=== PATIENT | male | born 1965 | race African-American/Black ===

== ENCOUNTER 2016-12-11 21:13 | Emergency (ER) | payer SELFPAY ==
[~2016-12-11] VITALS: Ht 172.7 cm; Wt 78.0 kg
[2016-12-11 21:15] VITALS: BP 132/84; PULSE 76; RESP 16; TEMP 98.2; O2SAT 99
[2016-12-11] MEDS ORDERED: ALBU6.7H INH ×2 (21:57→23:53)
[2016-12-11] MEDS ORDERED: MONT10TA2 PO (21:58)
--- NOTE | 2016-12-11 22:08 | PD ---
HPI Chief Complaint: Complaint Time Seen by Provider: 22:00 Travel History International Travel<30 days: No Contact w/Intl Traveler<30days: No Traveled to known affect area: No History of Present Illness HPI 51-year-old male presents for evaluation of testicle pain. Symptom onset this morning. It is an aching pain that is constant and worse with palpation. Denies nausea or vomiting, abdominal pain, flank pain, fevers or chills, dysuria , urethral discharge. He is only sexually active with his , no new sexual partners. He had similar pain once last year, he was prescribed ciprofloxacin and the pain resolved. He has no other complaints at this time. [facility] Past Medical History Asthma: Yes Tetanus Vaccination: Never Vaccinated Influenza Vaccination: No Social History Alcohol Use: No Tobacco Use: No Substance Use: No Allergies-Medications (Allergen,Severity, Reaction): Coded Allergies: No Known Allergies (Unverified , 12/11/16) Reported Meds & Prescriptions Reported Meds & Active Scripts Active Proventil Hfa 6.7 GM Inh (Albuterol Sulfate) 90 Mcg/Act Aer 2 Puff INH Q4-6H PRN Reported Singulair (Montelukast Sodium) 10 Mg Tab 10 Mg PO HS Proventil Hfa 6.7 GM Inh (Albuterol Sulfate) 90 Mcg/Act Aer 2 Puff INH Q4-6H PRN Review of Systems Except as stated in HPI: all other systems reviewed are Neg Physical Exam Narrative GENERAL: Well-developed well-nourished male in no acute distress SKIN: Warm and dry. HEAD: Atraumatic. Normocephalic. EYES: Pupils equal and round. No scleral icterus. No injection or drainage. ENT: No nasal bleeding or discharge. Mucous membranes pink and moist. NECK: Trachea midline. No JVD. CARDIOVASCULAR: Regular rate and rhythm. No murmur appreciated. RESPIRATORY: No accessory muscle use. Clear to auscultation. Breath sounds equal bilaterally. GASTROINTESTINAL: Abdomen soft, non-tender, nondistended. Hepatic and splenic margins not palpable. : Tender to palpation right testicle, no inguinal hernia palpable. No scrotal edema or erythema. No urethral discharge. MUSCULOSKELETAL: No obvious deformities. No edema. NEUROLOGICAL: Awake and alert. No obvious cranial nerve deficits. Motor grossly within normal limits. Normal speech. Data Data Last Documented VS Vital Signs Date Time Temp Pulse Resp B/P Pulse Ox O2 Delivery O2 Flow Rate FiO2 12/11/16 21:15 98.2 76 16 132/84 99 Room Air Orders Urinalysis - C+S If Indicated (12/11/16 22:07) Gc And Chlamydia Pcr (12/11/16 22:07) Us Testicles W Doppler (12/11/16 22:07) Acetamin-Hydrocod 325-5 Mg ([place] 5-325 (12/11/16 22:30) Ondansetron Odt (Zofran Odt) (12/11/16 22:30) Ketorolac Inj (Toradol Inj) (12/11/16 23:00) Labs Laboratory Tests Test 12/11/16 22:15 Urine Color YELLOW Urine Turbidity CLEAR Urine pH 6.0 Urine Specific [place] 1.029 Urine Protein TRACE mg/dL Urine Glucose (UA) NEG mg/dL Urine Ketones NEG mg/dL Urine Occult Blood NEG Urine Nitrite NEG Urine Bilirubin NEG Urine Urobilinogen 2.0 MG/DL Urine Leukocyte Esterase NEG Urine RBC 1 /hpf Urine WBC LESS THAN 1 /hpf Urine Squamous Epithelial <1 /hpf Cells Urine Mucus FEW /lpf Microscopic Urinalysis Comment CULT NOT INDICATED MDM Medical Decision Making Medical Screen Exam Complete: Yes Emergency Medical Condition: Yes Medical Record Reviewed: Yes Differential Diagnosis Testicular torsion, epididymitis, orchitis, hydrocele, cystocele Narrative Course 51-year-old male with one-day history of testicle pain. Examination reveals tenderness to palpation of the testicle, otherwise unremarkable. Ultrasound of the testicles reveals a hydrocele, otherwise unremarkable. Urinalysis is unremarkable. Plan is to have the patient follow up with urology as needed. For discharge. Recommend [id number] NSAIDs for symptom relief. On reexamination he reports that the pain is essentially resolved. He is requesting a prescription for Proventil refill. Stable for discharge. Diagnosis Primary Impression: Hydrocele Qualified Code: N43.3 - Hydrocele, unspecified hydrocele type Additional Instructions: Follow-up with urology as needed. Take [id number] Tylenol or Motrin for discomfort. Return for any emergent medical conditions. Med/Other Pt SpecificInfo: Prescription(s) given Scripts Albuterol 6.7 GM Inh (Proventil Hfa 6.7 GM Inh)90 Mcg/Act Aer2 Puff INH Q4-6H PRN (SHORTNESS OF BREATH) #1 INHALER Ref 0 Prov:Jensen Matute MD 12/11/16 Disposition: 01 DISCHARGE HOME Condition: Stable Dashawn Luis December 11, 2016 22:08
[2016-12-11] MEDS ORDERED: ONDANSETRON ODT 4 MG TAB PO ONE (22:30)
[2016-12-11] MEDS ORDERED: ACETAMINOPHEN/HYDROcodone 325 MG/5 MG TAB PO ONE (22:30)
[2016-12-11 22:40] LABS: BLOOD, URINE NEG (NEG); COMMENT (UR) CULT NOT INDICATED; CULTURE IF INDICATED CULT NOT INDICATED; GLUCOSE,URINE NEG (NEG); KETONE, URINE NEG (NEG); MUCUS URINE FEW /lpf (OCC); NITRITE,URINE NEG (NEG); SQUAMOUS EPITHELIAL CELL URINE <1 /hpf (0-5); URINE COLOR YELLOW (YELLW/STRAW)
[2016-12-11] MEDS ORDERED: KETOROLAC TROMETHAMINE 60 MG/2 ML (IM) VIAL IM ONE (23:00)
--- NOTE | 2016-12-11 23:40 | RADRPT ---
EXAM DATE/TIME: 12/11/2016 22:41 [facility] COMPARISON: No previous studies available for comparison. INDICATIONS : Scrotal pain. MEDICAL HISTORY : Asthma. SURGICAL HISTORY : None. ENCOUNTER: Initial ACUITY: 1 day PAIN SCORE: 6/10 LOCATION: Bilateral scrotum. MEASUREMENTS: RIGHT TESTICLE: 3.1 x 3.3 x 3.1cm LEFT TESTICLE: 2.9 x 1.9 x 1.9cm FINDINGS: RIGHT TESTICLE: Homogeneous echotexture without intra or extratesticular mass. A few tiny calcifications observed. A tiny testicular appendage noted. Blood flow is symmetric and within normal limits. No varicocele. A moderate sized simple hydrocele. Epididymis is within normal limits. LEFT TESTICLE: Homogeneous echotexture without intra or extratesticular mass. A few tiny calcifications observed. B lood flow is symmetric and within normal limits. No hydrocele or varicocele. Epididymis is within n ormal limits. SCROTUM: Within normal limits. CONCLUSION: 1. Moderate size simple right hydrocele. Otherwise, no acute abnormality. Juan Miguel Mendez Jr., MD on December 11, 2016 at 23:36 Board Certified Radiologist. This report was verified electronically.
[2016-12-12 00:41] LABS: CHLAMYDIA PCR NOT DETECTED (NOT DETECT); NEISSERIA PCR NOT DETECTED (NOT DETECT)
== END 2016-12-12 00:28 | disposition home or self-care (01) ==
LOC: NEPD 21:13
DX: N43.3 Hydrocele, unspecified (principal); J45.909 Unspecified asthma, uncomplicated
CPT/HCPCS: 76870; 81001; 87491; 87591; 93975; 96372; 99284; J1885